=== PATIENT | male | born 1990 | race Caucasian/White ===

== ENCOUNTER 2020-09-19 06:56 | Emergency (ER) | payer OTHER, SELFPAY ==
--- NOTE | ~2020-09-19 | XR_ITS ---
EXAMINATION: XR chest 2V DATE: 09/19/2020 07:23 INDICATION: Overdose. Shortness of breath. TECHNIQUE: frontal and lateral views of the chest were obtained. COMPARISON: None FINDINGS: The lungs are clear with no focal airspace opacities, pulmonary edema, pleural effusion or pneumothor ax. The cardiomediastinal silhouette is normal. Mild thoracic dextrocurvature. IMPRESSION: 1. No acute cardiopulmonary disease. Reviewed, dictated and finalized at location A.
--- NOTE | ~2020-09-19 | XR_ITS ---
EXAMINATION: XR knee RT min 4V DATE: 09/19/2020 09:15 INDICATION: Right knee pain TECHNIQUE: Four views of the right knee were obtained. COMPARISON: None. FINDINGS: Alignment is normal. No fracture or osteochondral lesion. Joint spaces are normal with no e rosions. No joint effusion/synovitis. Soft tissues are unremarkable. IMPRESSION: 1. No acute osseous abnormality. Reviewed, dictated and finalized at location A.
[2020-09-19 06:54] VITALS: BP 108/62; PULSE 83; RESP 13; TEMP 36.7; O2SAT 99
[2020-09-19 07:05] VITALS: RESP 17
--- NOTE | 2020-09-19 07:08 | ECG_ITS ---
Measurements Intervals [place] Rate: 73 P: 67 FL: 177 QRS: 94 QRSD: 94 T: 59 QT: 367 QTc: 407 Interpretive Statements SINUS RHYTHM WITH SINUS ARRHYTHMIA RIGHT AXIS DEVIATION INCOMPLETE RIGHT BUNDLE BRANCH BLOCK PEAKED T WAVES- CONSIDER HYPERKALEMIA OR ISCHEMIA BASELINE ARTIFACT- V2 ABNORMAL ECG Electronically Signed On 09-19-2020 8:16:01 CDT by Tavon Cooney D.O.
--- NOTE | 2020-09-19 07:12 | ED.OVERDOSE ---
HPI - Overdose General Chief Complaint: Overdose Stated Complaint: ? FENTANYL OD Time Seen by Provider: 09/19/20 07:01 Source: RN notes reviewed History of Present Illness HPI Narrative: Patient presents to emergency department via EMS for fentanyl overdose. Patient states he was at a friend's house last night using fentanyl he apparently had been kicked out of the house and was found unresponsive by bystanders by a dumpster that time he was given nasal Narcan by the bystanders EMS was then called the patient was given additional 2 mg of IV Narcan with return to baseline. Patient was noted to have agonal respirations per EMS. The patient currently is awake and alert has no complaints states he does not regularly use fentanyl denies any chest pain or shortness of breath Related Data Allergies Allergy/AdvReac Type Severity Reaction Status Date / Time No Known Allergies Verified 09/19/20 07:04 Review of Systems Review of Systems: Gen.: Denies fevers or chills ENT: Denies congestion Respiratory: Denies shortness of breath or cough CV: Denies chest pain or palpitations GI: Denies abdominal pain nausea, emesis or diarrhea Musculoskeletal: Denies back pain or muscle pain Neuro: Reports altered mental status with fentanyl overdose Skin: Denies rash Except as documented, all other systems reviewed and negative PMFSH Past Medical History Medical History (Updated 09/19/20 @ 10:11 by Antonio Pascual DO) Patient denies significant medical history Social History Social History (Updated 09/19/20 @ 07:13 by Antonio Pascual DO) Smoking status: Current some day smoker Substance use type: opiates Exam Narrative: APPEARANCE: No acute distress, nontoxic, resting in bed EYES: EOMI HEENT: Normocephalic, atraumatic, OMM RESPIRATORY: No respiratory distress Clear to auscultation bilaterally with no rhonchi wheezing or rales. CARDIOVASCULAR: Regular rate and rhythm without murmurs rubs or gallops. ABDOMINAL: Soft, nontender, nondistended, no rebound or guarding MUSCULOSKELETAl: Moves all extremities. No clubbing, cyanosis or edema. NEURO: Awake and alert x 3. Following commands, speech normal, no focal deficits SKIN:: Warm, dry. No rashes lesions or abrasions PSYCHIATRIC: Normal affect/mood, Course Course Emergency Course: Patient is remained awake and alert x3 throughout stay in ED he did complain of some knee pain and evaluate the patient had some tenderness over the right anterior knee there is no swelling or ecchymosis no tenderness of the medial lateral or posterior knee full flexion-extension of the knee dorsalis pedis pulse 2+ neurovascular intact I did obtain an x-ray showing no acute process Discussed with patient results of workup and diagnosis. Discussed need for follow-up with primary care, proper use of medication, and reasons to return to the emergency department. Patient understands and agrees to current treatment plan patient was given information with rehabilitation programs at discharge Vital Signs Vital signs: Vital Signs Temperature 98.1 F 09/19/20 06:54 Pulse Rate 83 09/19/20 06:54 Respiratory Rate 13 09/19/20 06:54 Blood Pressure 108/62 09/19/20 06:54 Pulse Oximetry 99 09/19/20 06:54 Temperature 98.1 F 09/19/20 06:54 Pulse Rate 63 09/19/20 09:25 Respiratory Rate 20 09/19/20 09:25 Blood Pressure 120/86 09/19/20 09:25 Pulse Oximetry 100 09/19/20 09:25 MDM - Overdose Imaging Data Radiologist's impression: ITS Impressions Chest X-Ray 09/19/20 07:48 IMPRESSION: 1. No acute cardiopulmonary disease. Knee X-Ray 09/19/20 09:21 IMPRESSION: 1. No acute osseous abnormality. ECG Data EKG #1: Interpretation: Sinus rhythm 73, FL is normal, axis normal QTC is normal ST segments normal Discharge Plan Discharge Clinical Impression: Opioid overdose, Contusion of knee, right Patient Disposition: Home, Self-Care Condition: Stable
[2020-09-19 07:39] VITALS: BP 117/84; PULSE 81; RESP 20; O2SAT 97
[2020-09-19 09:05] VITALS: BP 116/91; PULSE 80; RESP 20; O2SAT 99
[2020-09-19 09:25] VITALS: BP 120/86; PULSE 63; RESP 20; O2SAT 100
[2020-09-19 10:20] VITALS: BP 115/82; PULSE 73; RESP 20; O2SAT 99
== END 2020-09-19 10:38 | disposition home or self-care (01) ==
PROVIDERS: Emergency Provider Emergency Medicine
DX: T40.411A Poisoning by fentanyl or fentanyl analogs, accidental (unintentional), initial encounter (principal); S80.01XA Contusion of right knee, initial encounter; F17.200 Nicotine dependence, unspecified, uncomplicated; I45.10 Unspecified right bundle-branch block; R94.31 Abnormal electrocardiogram [ECG] [EKG]; X58.XXXA Exposure to other specified factors, initial encounter
CPT/HCPCS: 71046; 73564; 93005; 99284